=== PATIENT | female | born 1995 | race Caucasian/White ===

== ENCOUNTER 2023-03-25 13:04 | Emergency (ER) | payer OTHER ==
[2023-03-25 13:18] VITALS: RESP 18; BMI 19.2
[2023-03-25 15:02] LABS: BASO % 1.2 % (0-2.0); EOS % 1.7 % (0-4.5); HEMATOCRIT 39.3 % (32.4-45.2); HEMOGLOBIN 13.1 GM/dL (10.7-15.3); LYMPH % 26.2 % (8-40); MCH 29.3 pg (25.7-33.7); MCHC 33.3 g/dl (32.0-36.0); MEAN CELL VOLUME 87.8 fl (80-96); MEAN PLT VOLUME 7.6 fl (7.5-11.1); MONO % 6.9 % (3.8-10.2); PLATELET COUNT 268 10^3/uL (134-434); RBC 4.48 M/mm3 (3.60-5.2); WHITE BLOOD COUNT 6.9 K/mm3 (4.0-10.0)
[2023-03-25 15:09] LABS: INR 1.07 (0.83-1.09); PROTHROMBIN TIME (PATIENT) 12.4 SEC (9.7-13.0)
[2023-03-25 15:12] LABS: ACTIVATED PTT 30.1 SECONDS (25.2-36.5)
[2023-03-25 15:20] LABS: POTASSIUM 4.1 mmol/L (3.5-5.1)
[2023-03-25 15:23] LABS: CALCIUM 9.2 mg/dL (8.5-10.1)
[2023-03-25 15:24] LABS: ALBUMIN 3.9 g/dl (3.4-5.0); BLOOD UREA NITROGEN 12.7 mg/dL (7-18)
[2023-03-25 15:26] LABS: CREATININE 0.6 mg/dL (0.55-1.3)
[2023-03-25 15:28] LABS: BILIRUBIN,TOTAL 0.6 mg/dL (0.2-1); TOT PROT 7.1 g/dl (6.4-8.2)
[2023-03-25 17:38] VITALS: BP 102/64; PULSE 82; TEMP 98
== END 2023-03-25 17:39 | disposition home or self-care (01) ==
LOC: EDBD 13:04 → JERFT 13:04
DX: O20.9 Hemorrhage in early pregnancy, unspecified (principal); O26.891 Other specified pregnancy related conditions, first trimester; R10.30 Lower abdominal pain, unspecified; Z3A.01 Less than 8 weeks gestation of pregnancy
CPT/HCPCS: 36415; 76817-TC; 80053; 84702; 85025; 85610; 85730; 86850; 86900; 86901; 99284-25

== ENCOUNTER 2023-03-27 19:13 | Emergency (ER) | payer OTHER ==
[2023-03-27 19:23] VITALS: BP 103/68; PULSE 66; RESP 20; TEMP 98.3; BMI 19.5
== END 2023-03-27 21:16 | disposition home or self-care (01) ==
LOC: JERFT 19:13
DX: O03.9 Complete or unspecified spontaneous abortion without complication (principal); R10.30 Lower abdominal pain, unspecified
CPT/HCPCS: 36415; 84702; 86850; 86900; 86901; 99283-25

== ENCOUNTER 2024-03-14 13:35 | Inpatient (IN) | payer OTHER ==
[2024-03-14] MEDS ORDERED: ELECTROLYTE-148 SOLN 1,000 ML IV SCH (15:00)
[2024-03-14 15:05] VITALS: BMI 29.5
[2024-03-14] MEDS ORDERED: AMPICILLIN SODIUM 2 GM VIAL ONE (15:12)
[2024-03-14] MEDS ORDERED: SODIUM CHLORIDE 100 ML IVPB ONE ×3 (15:13→23:38)
[2024-03-14] MEDS: LACTATED RINGERS SOLUTION 1,000 ML IV SCH (15:33)
[2024-03-14] MEDS: AMPICILLIN - 2 GM in SODIUM CHLORIDE 100 ML IVPB ONE (15:34)
[2024-03-14] MEDS ORDERED: OXYTOCIN 30 UNITS in 0.9% NS 30 UNIT/500 ML INFUS.BAG IVPB ONE (15:52)
[2024-03-14] MEDS: OXYTOCIN 30 UNITS in 0.9% NS 30 UNIT/500 ML INFUS.BAG IVPB SCH (16:03)
[2024-03-14] MEDS ORDERED: AMPICILLIN SODIUM 1 GM VIAL ONE ×2 (19:29→23:38)
[2024-03-14] MEDS: AMPICILLIN - 1 GM in SODIUM CHLORIDE 100 ML IVPB SCH (19:30)
[2024-03-15] MEDS ORDERED: BUTORPHANOL TARTRATE 2 MG/ML VIAL ONE (00:53)
[2024-03-15] MEDS ORDERED: PROMETHAZINE HCL 25 MG/1 ML VIAL ONE (00:53)
[2024-03-15] MEDS: BUTORPHANOL TARTRATE 1 MG/ML VIAL IVPB ONE (00:59)
[2024-03-15] MEDS: PROMETHAZINE HCL 25 MG/1 ML VIAL IVPB ONE (00:59)
[2024-03-15 02:25] LABS: BASO % 0.3 % (0-2.0); EOS % 0.7 % (0-4.5); HEMATOCRIT 32.8 % (32.4-45.2); HEMOGLOBIN 10.5 GM/dL (10.7-15.3); LYMPH % 11.7 % (8-40); MCH 24.9 pg (25.7-33.7); MEAN CELL VOLUME 77.8 fl (80-96); MEAN PLT VOLUME 7.4 fl (7.5-11.1); MONO % 6.9 % (3.8-10.2); NEUT % 80.4 % (42.8-82.8); PLATELET COUNT 218 10^3/uL (134-434); RBC 4.22 M/mm3 (3.60-5.2); RDW 14.6 % (11.6-15.6); WHITE BLOOD COUNT 13.2 K/mm3 (4.0-10.0)
[2024-03-15 02:42] LABS: POTASSIUM 3.7 mmol/L (3.5-5.1)
[2024-03-15 02:43] LABS: CALCIUM 8.6 mg/dL (8.5-10.1)
[2024-03-15 02:44] LABS: BLOOD UREA NITROGEN 9.1 mg/dL (7-18)
[2024-03-15 02:47] LABS: CREATININE 0.5 mg/dL (0.55-1.3)
[2024-03-15] MEDS ORDERED: FENTANYL/BUPIVACAINE/NS/PF - PCEA - 50 ML DISP.SYRIN EP ONE ×2 (02:54→07:52)
[2024-03-15 02:56] LABS: INR 1.01 (0.83-1.09); PROTHROMBIN TIME (PATIENT) 11.4 SEC (9.7-13.0)
[2024-03-15 02:59] LABS: ACTIVATED PTT 24.3 SECONDS (25.2-36.5)
[2024-03-15] MEDS ORDERED: NALOXONE HCL 0.4 MG/ML VIAL IVPUSH PRN (03:13)
[2024-03-15] MEDS ORDERED: BUPIVACAINE HCL/PF 0.25% (2.5MG/ML) 10 ML VIAL ONE (03:14)
[2024-03-15] MEDS: FENTANYL/BUPIVACAINE/NS/PF - PCEA - 50 ML DISP.SYRIN EP SCH (03:25)
[2024-03-15] MEDS ORDERED: AMPICILLIN SODIUM 1 GM VIAL ONE ×2 (03:55→06:59)
[2024-03-15] MEDS ORDERED: SODIUM CHLORIDE 100 ML IVPB ONE ×2 (03:55→06:59)
[2024-03-15] MEDS ORDERED: OXYTOCIN 20 UNITS in 0.9% NS 20 UNIT/1,000 ML INFUS.BAG IV ONE (09:32)
[2024-03-15] MEDS: MISOPROSTOL 200 MCG TABLET PR SCH (11:15)
[2024-03-15] MEDS: OXYTOCIN 20 UNITS in 0.9% NS 20 UNIT/1,000 ML INFUS.BAG IV SCH (11:30)
[2024-03-15] MEDS ORDERED: MISOPROSTOL 200 MCG TABLET ONE (11:49)
[2024-03-15] MEDS ORDERED: BISACODYL 10 MG SUPP.RECT RC PRN (12:30)
[2024-03-15] MEDS ORDERED: METHYLERGONOVINE MALEATE 0.2 MG/1 ML AMP IM PRN (12:30)
[2024-03-15] MEDS ORDERED: BENZOCAINE 28 GM HEMORRHOIDAL OINTMENT TP PRN (12:30)
[2024-03-15] MEDS: WITCH HAZEL 50% (TUCKS) 40 PAD/JAR PAD TP PRN (13:59)
[2024-03-15] MEDS: BENZOCAINE 20% 57 GM BOTTLE TP PRN (13:59)
[2024-03-15] MEDS: IBUPROFEN 600 MG TABLET (FP) PO PRN (17:43)
[2024-03-15] MEDS: ACETAMINOPHEN 325 MG TABLET (FP) PO PRN (20:05)
[2024-03-16 07:42] LABS: BASO % 0.2 % (0-2.0); EOS % 0.6 % (0-4.5); HEMATOCRIT 26.4 % (32.4-45.2); HEMOGLOBIN 8.5 GM/dL (10.7-15.3); LYMPH % 13.7 % (8-40); MCH 25.4 pg (25.7-33.7); MCHC 32.2 g/dl (32.0-36.0); MEAN CELL VOLUME 78.8 fl (80-96); MEAN PLT VOLUME 7.4 fl (7.5-11.1); MONO % 7.8 % (3.8-10.2); NEUT % 77.7 % (42.8-82.8); PLATELET COUNT 216 10^3/uL (134-434); RBC 3.35 M/mm3 (3.60-5.2); RDW 14.7 % (11.6-15.6); WHITE BLOOD COUNT 14.3 K/mm3 (4.0-10.0)
[2024-03-16] MEDS: IRON SUCROSE INJECTION 200 MG in SODIUM CHLORIDE 100 ML IVPB ONE (11:03)
[2024-03-16] MEDS: PRENATAL VITAMINS W/ FOLIC ACID TABLET (FP) PO SCH (11:04)
[2024-03-16] MEDS ORDERED: SENNOSIDES/DOCUSATE COMBO (SENNA PLUS) TABLET (UD) PO PRN (22:00)
[2024-03-17 09:31] VITALS: BP 104/76; PULSE 74; RESP 16
[2024-03-17 12:20] VITALS: TEMP 98.3
== END 2024-03-17 14:25 | disposition home or self-care (01) | DRG 560 ==
LOC: JDEL 13:35 → JLDR 14:35 → J3W 03-15 13:45
PROVIDERS: ADMIT Obstetrics & Gynecology; ATTEND Obstetrics & Gynecology
PROC: 10E0XZZ Delivery of Products of Conception, External Approach (ICD-10-PCS; principal; 2024-03-15)
PROC: 0KQM0ZZ Repair Perineum Muscle, Open Approach (ICD-10-PCS; 2024-03-15)
PROC: 0W8NXZZ Division of Female Perineum, External Approach (ICD-10-PCS; 2024-03-15)
DX: O70.1 Second degree perineal laceration during delivery (principal); O99.820 Streptococcus B carrier state complicating pregnancy; Z3A.40 40 weeks gestation of pregnancy; Z37.0 Single live birth
CPT/HCPCS: 36415; 59409; 80048; 85025; 85610; 85730; 86780; 86850; 86900; 86901; J1756